=== PATIENT | female | born 1985 | race Hispanic/Latino ===

== ENCOUNTER 2019-02-05 18:21 | Inpatient (IN) | payer OTHER ==
[2019-02-05 18:47] LABS: Hematocrit 41.4 % (30.3-42.9); Hemoglobin 14.1 gm/dl (10.1-14.3); Mean Corpuscular HGB Conc 34 % (30-34); Mean Corpuscular Volume 95 fl (79-97); Platelet Count 345 K/mm3 (140-440); Red Blood Count 4.38 M/mm3 (3.65-5.03); Red Cell Distribution Width 13.5 % (13.2-15.2)
[2019-02-05 18:53] LABS: Bilirubin,Urine NEG (Negative); Blood,Urine NEG (Negative); Color,Urine Yellow (Yellow); Mucus,Urine FEW /HPF; Protein,Urine <15 mg/dL mg/dL (Negative); RBC,Urine < 1.0 /HPF (0.0-6.0); Urobilinogen,Urine < 2.0 mg/dL (<2.0)
[2019-02-05 19:10] LABS: Alanine Aminotransferase 13 units/L (7-56); Albumin 3.8 g/dL (3.9-5); BUN/Creatinine Ratio 9; Blood Urea Nitrogen 7 mg/dL (7-17); Calcium 8.7 mg/dL (8.4-10.2); Hemolysis Index 7
[2019-02-05 20:13] LABS: RBC Morphology Normal; Total Cells Counted 100
[2019-02-05] MEDS ORDERED: NACL 0.9% 1000 ML 1,000 ML IV ONE (20:42)
[2019-02-05] MEDS ORDERED: ZOFRAN IV ONE (20:42)
[2019-02-05] MEDS ORDERED: MORPHINE IV ONE (20:42)
[2019-02-05] MEDS ORDERED: PEPCID IV ONE (20:42)
--- NOTE | 2019-02-05 22:09 | Ultrasound Report ---
PROCEDURE: US ABDOMEN LIMITED TECHNIQUE: Real-time sonography was performed of the right upper quadrant with image documentation. HISTORY: RUQ PAIN COMPARISONS: None . FINDINGS: Examination of the gallbladder demonstrates no evidence for gallstones, distention, wall thickening, or pericholecystic fluid. No sonographic Tovar's sign is elicited. Common bile duct is normal in bhavesh meter measuring 1.3 mm. The liver is normal and homogeneous in echogenicity without focal abnormality or intrahepatic biliary dilatation. The pancreas is not visualized due to bowel gas. The right kidney is normal in size without calculi or hydronephrosis. The right measures 11.2 cm in craniocaudal length. The aorta is normal in caliber measuring up to 1.9 cm in diameter in its proximal portion. IMPRESSION: Normal right upper quadrant ultrasound. This document is electronically signed by Leta Ceja MD., February 05 2019 10:07:42 PM ET
--- NOTE | 2019-02-06 01:18 | Cat Scan Report ---
PROCEDURE: CT ABDOMEN PELVIS W CON TECHNIQUE: Computerized axial tomography of the abdomen and pelvis was performed after the IV inject ion of iodinated nonionic contrast. HISTORY: abdominal pain COMPARISONS: None . FINDINGS: Visualized lower thorax: No significant abnormality. Liver: Normal size and attenuation. Spleen: Normal size and attenuation. Gallbladder and biliary system: Normal. Pancreas: Normal. Adrenals: Normal. Kidneys: Normal. GI tract: The stomach is normal. The small bowel has normal caliber without obstruction. No ileus or enteritis. The cecum is normal. In the right lower quadrant there is a small area of fat stranding i dentified posterior to the cecum and this may be along the very distal tip of the appendix. The remai nder of the appendix has a normal caliber with no evidence of inflammatory change. This is small area of fat stranding could represent early inflammation in the tip of the appendix. The colon has a norm al appearance.. . Lymph nodes and mesentery: Normal. Vasculature: Normal.. Bladder: Normal. Reproductive organs: Normal. Peritoneum: No free fluid. Musculoskeletal structures: No significant abnormality. Other: None . IMPRESSION: There is a small area of inflammatory change and fat stranding posterior to the cecum in the right lower quadrant. This could represent early inflammation in the tip of the appendix. The re mainder of the appendix has a normal appearance on this study. Although definitive inflammation of th e appendix is not seen on this study, follow-up study may be required if clinical symptomatology is p ersistent. The cecum has a normal appearance. There is no evidence of intestinal or urinary tract obs truction. No ileus or enteritis.. . This document is electronically signed by Vani Neville DO., February 06 2019 01:17:12 AM ET
--- NOTE | 2019-02-06 02:22 | Emergency Department Report ---
ED Abdominal Pain HPI - General Chief Complaint: Abdominal Pain Stated Complaint: ABD PAIN Time Seen by Provider: 02/05/19 19:40 Source: patient Mode of arrival: Ambulatory Limitations: No Limitations - History of Present Illness Initial Comments: Patient is a A0 34-year-old -[place] female with no past medical history who presents to the ED with complaint of acute onset persistent severe right upper quadrant pain that radiates to the epigastric area as well as right lower quadrant pain with nausea and diarrhea for the last 24 hours. Patient states that the pain was initially mild and she even went to a club and drank a little alcohol and ate hot wings. Patient states that the pain got worse over 12 as ago and has been persistent with nausea and diarrhea. Patient states that the pain is mainly in the right upper quadrant and epigastric area but also radiates to the right lower quadrant. Patient denies dizziness, fever, chills, dysuria, vaginal bleeding, chest pain, shortness of breath, vomiting, low back pain or headache. MD Complaint: abdominal pain -: Sudden, hour(s) (24) Location: RUQ, RLQ, epigastric, suprapubic Radiation: RUQ, RLQ, epigastric, suprapubic Migration to: periumbilical, RLQ Severity: severe Severity scale (0 -10): 9 Quality: cramping, aching, sharp Consistency: constant Improves With: nothing Worsens With: nothing Associated Symptoms: denies other symptoms, nausea, diarrhea. denies: vomiting, chills, constipation, dysuria, hematemesis, hematochezia, melena, anorexia, syncope - Related Data LMP (females 10-50): last week Previous Rx's Medication Instructions Recorded Last Taken Type Albuterol Sulfate [Ventolin HFA] 2 puff IH Q4H PRN #1 hfa.aer.ad 09/24/13 Unknown Rx Azithromycin [Zithromax Z-JEEVAN] 250 mg PO DAILY #6 tablet 09/24/13 Unknown Rx Guaifenesin/Codeine Phosphate 10 ml PO Q6H PRN #8 oz 09/24/13 Unknown Rx [Cheratussin AC Syrup] Prednisone 20 mg PO QDAY #5 tablet 09/24/13 Unknown Rx Allergies Allergy/AdvReac Type Severity Reaction Status Date / Time No Known Allergies Allergy Verified 06/06/19 02:38 ED Review of Systems ROS: Stated complaint: ABD PAIN Other details as noted in HPI Comment: All other systems reviewed and negative Constitutional: no symptoms reported, see HPI. denies: chills, diaphoresis, fever, malaise Eyes: as per HPI. denies: eye pain, eye discharge, vision change ENT: as per HPI. denies: ear pain, throat pain, dental pain, hearing loss Respiratory: see HPI. denies: cough, orthopnea, shortness of breath, SOB with exertion, SOB at rest, wheezing Cardiovascular: as per HPI. denies: chest pain, palpitations Endocrine: no symptoms reported Gastrointestinal: as per HPI, abdominal pain, nausea, diarrhea Genitourinary: as per HPI. denies: urgency, dysuria, discharge Musculoskeletal: as per HPI. denies: back pain, joint swelling, arthralgia Skin: as per HPI. denies: rash, lesions Neurological: as per HPI. denies: headache, weakness, paresthesias Psychiatric: as per HPI. denies: anxiety, depression Hematological/Lymphatic: denies: easy bleeding, easy bruising ED Past Medical Hx - Past Medical History Previous Medical History?: No - Surgical History Past Surgical History?: No - Social History Smoking Status: Never Smoker Substance Use Type: None - Medications Home Medications: Home Medications Medication Instructions Recorded Confirmed Last Taken Type Albuterol Sulfate [Ventolin HFA] 2 puff IH Q4H PRN #1 hfa.aer.ad 09/24/13 Unknown Rx Azithromycin [Zithromax Z-JEEVAN] 250 mg PO DAILY #6 tablet 09/24/13 Unknown Rx Guaifenesin/Codeine Phosphate 10 ml PO Q6H PRN #8 oz 09/24/13 Unknown Rx [Cheratussin AC Syrup] Prednisone 20 mg PO QDAY #5 tablet 09/24/13 Unknown Rx ED Physical Exam - General Limitations: No Limitations General appearance: alert, in no apparent distress - Head Head exam: Present: atraumatic, normocephalic, normal inspection - Eye Eye exam: Present: normal appearance, PERRL, EOMI. Absent: scleral icterus, conjunctival injection Pupils: Present: normal accommodation - ENT ENT exam: Present: normal exam, normal orophraynx, mucous membranes moist, TM's normal bilaterally - Neck Neck exam: Present: normal inspection, full ROM. Absent: tenderness - Respiratory Respiratory exam: Present: normal lung sounds bilaterally. Absent: respiratory distress, wheezes, rales, rhonchi, chest wall tenderness, accessory muscle use, prolonged expiratory - Cardiovascular Cardiovascular Exam: Present: regular rate, normal rhythm. Absent: systolic murmur, diastolic murmur, rubs, gallop - GI/Abdominal GI/Abdominal exam: Present: soft, tenderness (right upper quadrant, epigastric and right lower quadrant tenderness, no guarding), normal bowel sounds. Absent: guarding, rebound, hyperactive bowel sounds, hypoactive bowel sounds, organomegaly - Rectal Rectal exam: Present: deferred - Extremities Exam Extremities exam: Present: normal inspection, full ROM, normal capillary refill - Back Exam Back exam: Present: normal inspection, full ROM. Absent: tenderness, CVA tenderness (L), muscle spasm, vertebral tenderness - Neurological Exam Neurological exam: Present: alert, oriented X3, CN II-XII intact, normal gait, reflexes normal - Psychiatric Psychiatric exam: Present: normal affect, normal mood - Skin Skin exam: Present: warm, dry, intact, normal color. Absent: rash ED Course Vital Signs 02/05/19 02/05/19 02/06/19 18:32 20:45 02:29 Temperature 98.3 F 98.2 F Pulse Rate 81 52 L Respiratory 16 16 20 Rate Blood Pressure 117/75 90/57 [Left] O2 Sat by Pulse 99 98 Oximetry - Reevaluation(s) Reevaluation #1: 02/06/19 02:28 Patient is alert and oriented 3 and is not in distress but in pain. Labs are drawn and patient is pain in the ED. Lab test results were reviewed and shows acute leukocytosis of 15,000. The rest of the lab test findings are unremarkable including urinalysis. The right upper quadrant gallbladder ultrasound shows normal gallbladder with a normal gallbladder wall thickness. Abdomen pelvis CT scan with contrast shows a small area of inflammatory change and fat stranding posterior to the cecum in the right lower quadrant. According to the radiologist report, this could represent either inflammation in the temporal appendix. The remainder of the appendix is normal in appearance and this study. The rest of the abdomen and pelvis CT scan report shows unremarkable findings. This report was discussed today he did an incision that is out of and asked that the neurosurgeon garment alteration examiner Dr. Peterson be paged and subsequently the hospitalist physician garment alteration examiner because paged to admit the patient and surgery will consult. ED Medical Decision Making - Lab Data Result diagrams: 02/05/19 18:37 02/05/19 18:37 - Radiology Data Radiology results: report reviewed, image reviewed The right upper quadrant gallbladder ultrasound shows normal gallbladder with a normal gallbladder wall thickness. Abdomen pelvis CT scan with contrast shows a small area of inflammatory change and fat stranding posterior to the cecum in the right lower quadrant. According to the radiologist report, this could represent either inflammation in the temporal appendix. The remainder of the appendix is normal in appearance and this study. - Medical Decision Making Patient is alert and oriented 3 and is not in distress but in pain. Labs are drawn and patient is pain in the ED. Lab test results were reviewed and shows acute leukocytosis of 15,000. The rest of the lab test findings are unremarkable including urinalysis. The right upper quadrant gallbladder ultrasound shows normal gallbladder with a normal gallbladder wall thickness. Abdomen pelvis CT scan with contrast shows a small area of inflammatory change and fat stranding posterior to the cecum in the right lower quadrant. According to the radiologist report, this could represent either inflammation in the temp oral appendix. The remainder of the appendix is normal in appearance and this study. The rest of the abdomen and pelvis CT scan report shows unremarkable findings. This report was discussed today he did an incision that is out of and asked that the neurosurgeon garment alteration examiner Dr. Peterson be paged and subsequently the hospitalist physician garment alteration examiner because paged to admit the patient and surgery will consult. I paged and discussed the patient's clinical findings plus imaging reports with the general surgeon garment alteration examiner Dr. Peterson were advised that the patient be kept nothing by mouth and that the hospitalist admit the patient and one of her colleagues shall evaluate the patient. I also paged and discu ssed the patient's findings with the hospitalist physician garment alteration examiner Dr. Smart will admit the patient to the hospital. - Differential Diagnosis abdominal pain, Acute appendicitis, Cholelithiasis, gastritis Critical care attestation.: If time is entered above; I have spent that time in minutes in the direct care of this critically ill patient, excluding procedure time. ED Disposition Clinical Impression: Abdominal pain Qualifiers: Abdominal location: right lower quadrant Qualified Code(s): R10.31 - Right lower quadrant pain Acute appendicitis Qualifiers: Acute appendicitis type: unspecified acute appendicitis type Qualified Code(s): K35.80 - Unspecified acute appendicitis Disposition: DC-09 OP ADMIT IP TO THIS HOSP Is pt being admited?: Yes Does the pt Need Aspirin: No Condition: Stable Instructions: Abdominal Pain (ED) Referrals: NIXON DE LA CRUZ MD [Primary Care Provider] - 3-5 Days Time of Disposition: 02:35
[2019-02-06] MEDS ORDERED: ZOSYN/NS 3.375GM/50ML 3.375 GM/50 ML BAG IV ONE (02:36)
[2019-02-06] MEDS ORDERED: ZOFRAN IV ONE (02:37)
[2019-02-06] MEDS ORDERED: TYLENOL PO PRN (04:01)
[2019-02-06] MEDS ORDERED: SODIUM CHLORIDE FLUSH SYRINGE 10 ML IV PRN (04:01)
[2019-02-06] MEDS ORDERED: ZOFRAN IV PRN (04:01)
--- NOTE | 2019-02-06 04:06 | History and Physical Report ---
History of Present Illness Date of examination: 02/06/19 History of present illness: 34year old woman with no medical problem constantly emergency room complaining of abdominal pain located in the right upper quadrant that started this morning. She describes the pain as sharp, constant, radiating to the epigastric area, intensity 7/10, relieved with pain medication given in the emergency room. Complains of nausea, one episodes of diarrhea, no fever no chills Review of systems Constitutional: no weight loss, chills, fever Ears, eyes, nose, mouth and throat: no nasal congestion, no nasal discharge, no sinus pressure, no vision change, no red eye. Neck: No neck pain or rigidity. Cardiovascular: no palpitations, chest pain Respiratory: no cough, shortness of breath Gastrointestinal: no hematochezia, abdominal pain Genitourinary : no frequency , no hematuria Musculoskeletal: no joint swelling or muscle ache Integumentary: no rash, no pruritis Neurological: no parathesias, no focal weakness Endocrine: no cold or heat intolerance, no polyuria or polydipsia Hematologic/Lymphatic: no easy bruising, no easy bleeding, no gland swelling Allergic/Immunologic: no urticaria, no angioedema. PAST MEDICAL HISTORY:None PAST SURGICAL HISTORY: None SOCIAL HISTORY: Denies alcohol, drugs, tobacco FAMILY HISTORY: Hypertension Medications and Allergies Allergies Allergy/AdvReac Type Severity Reaction Status Date / Time No Known Allergies Allergy Verified 02/06/19 02:38 Home Medications Medication Instructions Recorded Confirmed Last Taken Type Albuterol Sulfate [Ventolin HFA] 2 puff IH Q4H PRN #1 hfa.aer.ad 09/24/13 Unknown Rx Azithromycin [Zithromax Z-JEEVAN] 250 mg PO DAILY #6 tablet 09/24/13 Unknown Rx Guaifenesin/Codeine Phosphate 10 ml PO Q6H PRN #8 oz 09/24/13 Unknown Rx [Cheratussin AC Syrup] Prednisone 20 mg PO QDAY #5 tablet 09/24/13 Unknown Rx Active Meds: Active Medications Acetaminophen (Tylenol) 650 mg PO Q4H PRN PRN Reason: Pain MILD(1-3)/Fever >100.5/HERNANDEZ Enoxaparin Sodium (Lovenox) 40 mg SUB-Q QDAY@1000 CANDIDA Sodium Chloride (Nacl 0.9% 1000 Ml) 1,000 mls @ 125 mls/hr IV ONCE ONE Stop: 02/06/19 11:17 Sodium Chloride (Nacl 0.9% 1000 Ml) 1,000 mls @ 125 mls/hr IV DIRECT CANDIDA Piperacillin Sod/Tazobactam Sod (Zosyn/Ns 4.5gm/100ml) 4.5 gm in 100 mls @ 200 mls/hr IV Q8HR CANDIDA; Protocol Morphine Sulfate (Morphine) 2 mg IV Q4H PRN PRN Reason: Pain, Moderate (4-6) Ondansetron HCl (Zofran) 4 mg IV Q8H PRN PRN Reason: Nausea And Vomiting Sodium Chloride (Sodium Chloride Flush Syringe 10 Ml) 10 ml IV BID CANDIDA Sodium Chloride (Sodium Chloride Flush Syringe 10 Ml) 10 ml IV PRN PRN PRN Reason: LINE FLUSH Exam - Physical Exam Narrative exam: General Apperance: The patient lying in bed, breathing comfortable HEENT: Normocephalic, atraumatic. Pupils equally round and reactive to light, EOMI, no sclericterus or JVD or thyromegaly or nodule. , no carotid bruit, mucous membranes moist, no exudate or erythema Heart: S1-S2, regular is rhythm Lungs: Clear to auscultation bilaterally, breathing comfortable Abdomen: Positive bowel sounds, soft, tender in ruq, nondistended, no organomegaly Extremities: No edema cyanosis clubbing Skin: no rash, nodule, warm and dry Neuro: cranial nerves 2-12 intact, speech is fluent, motor/sensory intact - Constitutional Vitals: Temp Pulse Resp BP Pulse Ox 98.2 F 52 L 20 90/57 98 02/06/19 02:29 02/06/19 02:29 02/06/19 02:29 02/06/19 02:29 02/06/19 02:29 Results - Labs CBC & Chem 7: 02/05/19 18:37 02/05/19 18:37 Labs: Abnormal lab results 02/05/19 02/05/19 Range/Units 18:37 18:37 WBC 15.0 H (4.5-11.0) K/mm3 Seg Neutrophils # Man 9.5 H (1.8-7.7) K/mm3 Basophils # (Manual) 0.2 H (0.0-0.1) K/mm3 Albumin 3.8 L (3.9-5) g/dL - Imaging and Cardiology EKG: image reviewed CT scan - abdomen: report reviewed CT scan - pelvis: report reviewed US - abdomen: report reviewed Assessment and Plan Assessment Abdominal pain, possible appendicitis Plan Admit to medicine Nothing by mouth, IV fluid, IV Zosyn Surgery was consulted to see the patient DVT prophylaxis
[2019-02-06] MEDS: NACL 0.9% 1000 ML 1,000 ML IV ONE ×2 (04:48→04:49)
[2019-02-06] MEDS ORDERED: NACL 0.9% 1000 ML 1,000 ML IV SCH (05:00)
[2019-02-06 05:26] LABS: Basophils # (Auto) 0.1 K/mm3 (0.0-0.1); Basophils % (Auto) 1.1 % (0.0-1.8); Eosinophils # (Auto) 0.1 K/mm3 (0.0-0.4); Eosinophils % (Auto) 0.9 % (0.0-4.3); Hematocrit 39.2 % (30.3-42.9); Hemoglobin 13.6 gm/dl (10.1-14.3); Lymphocytes % (Auto) 32.6 % (13.4-35.0); Mean Corpuscular HGB Conc 35 % (30-34); Mean Corpuscular Volume 95 fl (79-97); Monocytes # (Auto) 1.1 K/mm3 (0.0-0.8); Monocytes % (Auto) 8.8 % (0.0-7.3); Platelet Count 314 K/mm3 (140-440); Red Blood Count 4.14 M/mm3 (3.65-5.03); Red Cell Distribution Width 13.6 % (13.2-15.2)
[2019-02-06 05:43] LABS: BUN/Creatinine Ratio 9; Blood Urea Nitrogen 7 mg/dL (7-17); Calcium 8.6 mg/dL (8.4-10.2); Hemolysis Index 9
[2019-02-06] MEDS: MORPHINE IV PRN ×2 (09:15→22:48)
[2019-02-06] MEDS: SODIUM CHLORIDE FLUSH SYRINGE 10 ML IV SCH (09:15)
--- NOTE | 2019-02-06 09:26 | Consultation ---
History of Present Illness Consult date: 02/06/19 Reason for consult: abdominal pain Requesting physician: TIFFANIE NAGY Chief complaint: upper abdominal pain - History of present illness History of present illness: 34yo F with a remote history of stomach ulcer presents with acute onset of upper abdominal pain. Denies any complaints prior to yesterday morning. Denies any trauma. Has had no recent surgical procedures. Denies any fevers, chills, nausea, vomiting, heartburn, reflux. Has not been taking any NSAIDs. She reports that this pain that she has in her right upper quadrant and epigastric area is different than the stomach ulcer pain she had in the distant past. She didn't appreciate the right lower quadrant pain until evaluation was done. General surgery was asked see the patient for possible acute appendicitis. Patient reports that her epigastric pain is less than yesterday. Past History Past Medical History: other (remote history of "stomach ulcer") Past Surgical History: No surgical history Social history: smoking (1ppd). denies: alcohol abuse, prescription drug abuse, IV drug use Family history: no significant family history Medications and Allergies Allergies Allergy/AdvReac Type Severity Reaction Status Date / Time No Known Allergies Allergy Verified 02/06/19 02:38 Home Medications Medication Instructions Recorded Confirmed Last Taken Type Albuterol Sulfate [Ventolin HFA] 2 puff IH Q4H PRN #1 hfa.aer.ad 09/24/13 Unknown Rx Azithromycin [Zithromax Z-JEEVAN] 250 mg PO DAILY #6 tablet 09/24/13 Unknown Rx Guaifenesin/Codeine Phosphate 10 ml PO Q6H PRN #8 oz 09/24/13 Unknown Rx [Cheratussin AC Syrup] Prednisone 20 mg PO QDAY #5 tablet 09/24/13 Unknown Rx Active Meds: Active Medications Acetaminophen (Tylenol) 650 mg PO Q4H PRN PRN Reason: Pain MILD(1-3)/Fever >100.5/HERNANDEZ Sodium Chloride (Nacl 0.9% 1000 Ml) 1,000 mls @ 125 mls/hr IV ONCE ONE Stop: 02/06/19 11:17 Last Admin: 02/06/19 04:49 Dose: Not Given Documented by: Sodium Chloride (Nacl 0.9% 1000 Ml) 1,000 mls @ 125 mls/hr IV DIRECT CANDIDA Last Admin: 02/06/19 04:50 Dose: 125 mls/hr Documented by: Piperacillin Sod/Tazobactam Sod (Zosyn/Ns 4.5gm/100ml) 4.5 gm in 100 mls @ 200 mls/hr IV Q8H CANDIDA; Protocol Last Admin: 02/06/19 09:15 Dose: 200 mls/hr Documented by: Sodium Chloride (Nacl 0.9% 1000 Ml) 1,000 mls @ 999 mls/hr IV BOLUS ONE Stop: 02/06/19 10:30 Morphine Sulfate (Morphine) 2 mg IV Q4H PRN PRN Reason: Pain, Moderate (4-6) Last Admin: 02/06/19 09:15 Dose: 2 mg Documented by: Ondansetron HCl (Zofran) 4 mg IV Q8H PRN PRN Reason: Nausea And Vomiting Sodium Chloride (Sodium Chloride Flush Syringe 10 Ml) 10 ml IV BID CANDIDA Last Admin: 02/06/19 09:15 Dose: 10 ml Documented by: Sodium Chloride (Sodium Chloride Flush Syringe 10 Ml) 10 ml IV PRN PRN PRN Reason: LINE FLUSH Review of Systems - Constitutional no fever, no chills, no chronic pain - Cardiovascular no chest pain - Respiratory no cough, no shortness of breath, no dyspnea on exertion - Gastrointestinal abdominal pain, constipation, change in bowel habits, belching, dyspepsia/bloating, no nausea, no vomiting, no diarrhea, no hematemesis, no coffee ground emesis, no BRBPR, no melena, no hematochezia, no heartburn, no indigestion - Genitourinary Genitourinary: no dysuria - Muskuloskeletal no low back pain Exam Vital Signs Temp Pulse Resp BP Pulse Ox 98.3 F 81 16 117/75 99 02/05/19 18:32 02/05/19 18:32 02/05/19 18:32 02/05/19 18:32 02/05/19 18:32 - General physical appearance Positive: no distress, no pain, other (appears ok) - Eyes Positive: normal occular movement. Negative: icteric - Respiratory Positive: normal expansion, normal respiratory effort, clear to auscultation - Cardiovascular Rhythm: regular - Abdomen Abdomen: Present: soft, tender (in epigastric/RUQ/RLQ areas. Upper abdomen is more tender. Abdominal wall contraction decreased epigastric tenderness on palpation). Absent: distended, masses, guarding, rigid, wound, surgical scars - Integumentary no rash, no growths, no abnormal pigmentation - Neurologic Neurologic: alert and oriented to time, place and person, motor strength and sensation are grossly intact - Psychiatric Psychiatric: appropriate mood/affect, intact judgment & insight, cooperative Results - Labs 02/06/19 04:57 02/06/19 04:57 Abnormal lab results 02/05/19 02/05/19 02/06/19 Range/Units 18:37 18:37 04:57 WBC 15.0 H 12.3 H (4.5-11.0) K/mm3 MCH 33 H (28-32) pg MCHC 35 H (30-34) % Garland % (Auto) 8.8 H (0.0-7.3) % Garland # 1.1 H (0.0-0.8) K/mm3 Seg Neutrophils # Man 9.5 H (1.8-7.7) K/mm3 Basophils # (Manual) 0.2 H (0.0-0.1) K/mm3 Carbon Dioxide (22-30) mmol/L Albumin 3.8 L (3.9-5) g/dL 02/06/19 Range/Units 04:57 WBC (4.5-11.0) K/mm3 MCH (28-32) pg MCHC (30-34) % Garland % (Auto) (0.0-7.3) % Garland # (0.0-0.8) K/mm3 Seg Neutrophils # Man (1.8-7.7) K/mm3 Basophils # (Manual) (0.0-0.1) K/mm3 Carbon Dioxide 21 L (22-30) mmol/L Albumin (3.9-5) g/dL Diabetes panel 02/05/19 02/06/19 Range/Units 18:37 04:57 Sodium 139 139 (137-145) mmol/L Potassium 4.1 3.8 (3.6-5.0) mmol/L Chloride 104.1 106.7 (98-107) mmol/L Carbon Dioxide 23 21 L (22-30) mmol/L BUN 7 7 (7-17) mg/dL Creatinine 0.8 0.8 (0.7-1.2) mg/dL Glucose 92 92 (65-100) mg/dL Calcium 8.7 8.6 (8.4-10.2) mg/dL AST 13 (5-40) units/L ALT 13 (7-56) units/L Alkaline Phosphatase 65 (35-129) units/L Total Protein 7.2 (6.3-8.2) g/dL Albumin 3.8 L (3.9-5) g/dL Calcium panel 02/05/19 02/06/19 Range/Units 18:37 04:57 Calcium 8.7 8.6 (8.4-10.2) mg/dL Albumin 3.8 L (3.9-5) g/dL Pituitary panel 02/05/19 02/06/19 Range/Units 18:37 04:57 Sodium 139 139 (137-145) mmol/L Potassium 4.1 3.8 (3.6-5.0) mmol/L Chloride 104.1 106.7 (98-107) mmol/L Carbon Dioxide 23 21 L (22-30) mmol/L BUN 7 7 (7-17) mg/dL Creatinine 0.8 0.8 (0.7-1.2) mg/dL Glucose 92 92 (65-100) mg/dL Calcium 8.7 8.6 (8.4-10.2) mg/dL Adrenal panel 02/05/19 02/06/19 Range/Units 18:37 04:57 Sodium 139 139 (137-145) mmol/L Potassium 4.1 3.8 (3.6-5.0) mmol/L Chloride 104.1 106.7 (98-107) mmol/L Carbon Dioxide 23 21 L (22-30) mmol/L BUN 7 7 (7-17) mg/dL Creatinine 0.8 0.8 (0.7-1.2) mg/dL Glucose 92 92 (65-100) mg/dL Calcium 8.7 8.6 (8.4-10.2) mg/dL Total Bilirubin 0.40 (0.1-1.2) mg/dL AST 13 (5-40) units/L ALT 13 (7-56) units/L Alkaline Phosphatase 65 (35-129) units/L Total Protein 7.2 (6.3-8.2) g/dL Albumin 3.8 L (3.9-5) g/dL - Imaging CT scan - abdomen: report reviewed, image reviewed CT scan - pelvis: report reviewed, image reviewed Assessment and Plan - Patient Problems (1) Acute appendicitis Current Visit: Yes Status: Acute Qualifiers: Acute appendicitis type: unspecified acute appendicitis type Qualified Code(s): K35.80 - Unspecified acute appendicitis Plan to address problem: Pt stable. History is a bit unusual. This would be more typical of a duodenal perforation with fluid settling in the right lower quadrant. I examined the CT scan very carefully at the gastroduodenal junction and I did not see any suggestion of any free air, inflammatory change, thickening, etc. The only abnormality noted was a slightly thickened appendiceal tip with some mild inflammatory changes. I explained this in detail to the patient. It is poss ible that her upper abdominal symptoms are related to pressure from constipation. This may be secondary to the appendicitis. My recommendation would be to proceed for diagnostic laparoscopy, laparoscopic appendectomy, evaluation of the epigastric area. Procedure, risks, benefits were discussed. All questions were answered. Patient understood and consented. We will proceed to the OR today. Time=30min
[2019-02-06] MEDS ORDERED: NACL 0.9% 1000 ML 1,000 ML IV ONE (09:30)
[2019-02-06] MEDS ORDERED: LOVENOX SUB-Q SCH ×2 (10:00)
[2019-02-06] MEDS ORDERED: ZOSYN/NS 4.5GM/100ML 4.5 GM/100 ML VIAL IV SCH (10:00)
--- NOTE | 2019-02-06 12:15 | Anesthesia Consultation ---
Anesthesia Consult and Med Hx Date of service: 02/06/19 - Airway Anesthetic Teeth Evaluation: Good ROM Head & Neck: Adequate Mental/Hyoid Distance: Adequate Mallampati Class: Class II Intubation Access Assessment: Good - Pulmonary Exam CTA: Yes - Cardiac Exam Cardiac Exam: RRR - Pre-Operative Health Status ASA Pre-Surgery Classification: ASA1 - Pulmonary Hx Asthma: No COPD: No Hx Pneumonia: No - Central Nervous System Hx Psychiatric Problems: No - Endocrine Hx End Stage Renal Disease: No
--- NOTE | 2019-02-06 12:15 | Anesthesia Day of Surgery ---
Anesthesia Day of Surgery - Day of Surgery Patient Examined: Yes Patient H&P Reviewed: Yes Patient is NPO: Yes
[2019-02-06] MEDS: LACTATED RINGERS 1,000 ML IV SCH ×2 (12:42→15:53)
[2019-02-06] MEDS ORDERED: VERSED IV NR (13:00)
[2019-02-06] MEDS ORDERED: XYLOCAINE MPF 2% ONE (13:06)
[2019-02-06] MEDS ORDERED: QUELICIN ONE (13:06)
[2019-02-06] MEDS ORDERED: DILAUDID ONE ×2 (13:06→14:46)
[2019-02-06] MEDS ORDERED: DIPRIVAN 10 MG/ML IV ONE (13:06)
[2019-02-06] MEDS ORDERED: ZEMURON IV ONE (13:09)
[2019-02-06] MEDS ORDERED: XYLOCAINE 1% 20 mL INFILTRATI ONE (14:16)
[2019-02-06] MEDS ORDERED: MARCAINE 0.25% INFILTRATI ONE (14:16)
[2019-02-06] MEDS ORDERED: NACL 0.9% IR ONE (14:17)
[2019-02-06] MEDS ORDERED: ZOFRAN ONE (14:24)
[2019-02-06] MEDS ORDERED: BLOXIVERZ ONE (14:24)
[2019-02-06] MEDS ORDERED: TORADOL ONE (14:24)
[2019-02-06] MEDS ORDERED: ROBINUL ONE ×2 (14:24→14:27)
--- NOTE | 2019-02-06 14:36 | Post Operative Note ---
Date of procedure: 02/06/19 (dictation: [id number]) Pre-op diagnosis: acute appendicitis Post-op diagnosis: same Findings: mildly inflamed appendix with necrotic tip Procedure: lap appy IVF 600cc min EBL Anesthesia: GETA Surgeon: KYLE BROCK Estimated blood loss: minimal Pathology: list (appendix) Specimen disposition: to lab Condition: stable Disposition: PACU
[2019-02-06] MEDS ORDERED: DILAUDID IV PRN (14:57)
--- NOTE | 2019-02-06 15:44 | Post Anesthesia Evaluation ---
- Post Anesthesia Evaluation Patient Participated: Yes Airway Patent: Yes Stable Respiratory Function: Yes Nausea/Vomiting: No Temp > 96.8F: Yes Pain Manageable: Yes Adequeate Hydration: Yes Anesthesia Complications: No Block Receding Appropriately: Not Applicable Patient on Ventilator: No
--- NOTE | 2019-02-06 16:39 | Event Note ---
Date: 02/06/19 Patient s/p appendectomy for acute appendicitis. I have seen and examined her.
[2019-02-06] MEDS ORDERED: NACL 0.9% 500 ML 500 ML IV ONE (17:01)
[2019-02-06] MEDS: TORADOL IV SCH (18:03)
[2019-02-06] MEDS ORDERED: BENADRYL IV PRN (18:20)
--- NOTE | 2019-02-06 18:36 | Operative Report ---
PREOPERATIVE DIAGNOSIS: Acute appendicitis. POSTOPERATIVE DIAGNOSIS: Acute appendicitis. PROCEDURE: Laparoscopic appendectomy. ATTENDING PHYSICIAN: Fay Grajeda MD ANESTHESIA: General. ESTIMATED BLOOD LOSS: Minimal. FLUIDS: 600 mL. FINDINGS: No evidence of any abnormality in the upper abdomen/epigastric area where the patient reports she is having discomfort. The patient did have a mildly inflamed appendix that had an ischemic distal tip. No evidence of any perforation. SPECIMENS: Appendix. DRAINS: None. COMPLICATIONS: None. DISPOSITION: Stable, transferred to Recovery Room. INDICATIONS: This is a 34-year-old female who presented with a day and half history of acute onset of upper abdominal pain. CT scan showed no abnormalities in the upper abdomen, only a mildly inflamed appendix in the right lower quadrant. The patient's assessed to be in need for diagnostic laparoscopy and appendectomy. Procedure, risks and benefits were explained to the patient. Risks included but were not limited to infection, bleeding, pain, injury to surrounding structures, possible need for further procedures in the future. The patient understood and consented. DESCRIPTION OF PROCEDURE: The patient was brought to the operating room and placed on the table in supine position. After adequate general anesthesia was established, the patient was prepped and draped in the usual sterile fashion. Antibiotics had already been given on the floor. SCDs were in place. Time-out was called. I began by placing a Veress needle in the left upper quadrant. I was able to insufflate the abdomen on my first attempt. A 5 mm port was placed at the umbilicus using the Optiview technique. I entered the peritoneal cavity safely. There was no injury to the underlying structures where the Veress needle was inserted. Needle was removed. I placed a 5 mm port in the right upper quadrant, so as I could evaluate the upper abdomen properly. This was done under direct vision using atraumatic grasper. I examined the stomach, the duodenum, liver and gallbladder very carefully. I saw absolutely no suggestion of an abnormality. Everything appeared completely normal. The colon, perhaps was slightly dilated, but had no inflammatory changes, perhaps her pain was coming from constipation and/or dilatation of the bowel. I turned my attention to right lower quadrant. We placed a 5 mm port in the suprapubic area and then a 12 mm port in the left lower quadrant. The appendix was retrocecal. Using the ileocolic fat pad, we retracted the cecum medially. I was able to get the appendix mobilized. The distal tip was ischemic and adhered to the abdominal sidewall. With blunt dissection, I was able to separate that. We divided the mesoappendix with the LigaSure device. Using a 45 mm laparoscopic stapler blue load, I divided the base of the appendix. We had a clean staple line along the cecum. There was no evidence of any bleeding or intestinal leakage. The specimen was placed in the EndoCatch bag and left on the side. We examined the staple line. We had absolutely hemostatic staple line with no leaking. There were no other abnormalities. We removed the EndoCatch bag from the left lower quadrant port site. I checked that site as I placed the port tangentially. The actual opening was quite small. I did not think any sutures would be needed, therefore, we left it as is. All the ports were removed. We desufflated the abdomen. Additional local was injected into the port sites. Skin was closed with 4-0 Monocryl subcuticular stitches. Skin was cleaned and dried. Dermabond was placed. The patient tolerated the procedure well. There were no complications. All counts were correct at the end of the case. I spoke with the family at the end of the case and gave them an update. They were very appreciative. JOB# [id number] ZEKE/MAYCO LEAL
[2019-02-07] MEDS: TORADOL IV SCH ×2 (00:02→11:36)
[2019-02-07] MEDS: SODIUM CHLORIDE FLUSH SYRINGE 10 ML IV SCH ×3 (00:03→10:37)
[2019-02-07] MEDS: LACTATED RINGERS 1,000 ML IV SCH ×2 (00:05→15:20)
--- NOTE | 2019-02-07 08:17 | Progress Note ---
Assessment and Plan - Patient Problems (1) Acute appendicitis Current Visit: Yes Status: Acute Qualifiers: Acute appendicitis type: unspecified acute appendicitis type Qualified Code(s): K35.80 - Unspecified acute appendicitis Plan to address problem: pt stable. s/p lap appy - 02/06/19 - POD#1 for mild acute appendicitis. Pt doing well. May go home if tolerating diet and pain controlled. Rec: 1) possible d/c home today 2) f/u in office in 2 weeks. call for appt 3) diet as tolerated 4) may shower tomorrow. pat dry wounds Please call with questions. Subjective Date of service: 02/07/19 Patient Reports: Positive: no new complaints, feels better, pain is less, tolerating liquids well. Negative: nausea, vomiting Objective Vital Signs - 12hr 02/06/19 02/07/19 23:41 04:38 Temperature 98.2 F 98.1 F Pulse Rate 49 L 49 L Respiratory 20 18 Rate Blood Pressure 104/66 96/43 O2 Sat by Pulse 96 95 Oximetry - General physical appearance no distress, no pain - Respiratory normal expansion, normal respiratory effort - Abdomen soft, not distended, not guarding, not rigid, surgical scars (C/D/I) - Psychiatric oriented to time, oriented to person, oriented to place, speech is normal, memory intact - Labs 02/06/19 04:57 02/06/19 04:57
[2019-02-07] MEDS: NORCO 5/325 PO PRN ×2 (08:32→15:17)
[2019-02-07] MEDS ORDERED: NACL 0.9% 1000 ML 1,000 ML IV ONE (09:45)
[2019-02-07] MEDS ORDERED: CITRATE OF MAGNESIA PO ONE (16:02)
--- NOTE | 2019-02-07 16:19 | Discharge Summary ---
Providers - Providers Date of Admission: 02/06/19 03:48 Date of discharge: 02/07/19 Attending physician: MIRLANDE BLANC 02/06/19 02:57 Consult to Physician [CONS] Stat Comment: [employer]ER/PA spoke with Dr. Alvarez @ [phone] Consulting Provider: MORIAH ALVAREZ Physician Instructions: Reason For Exam: Acute appendicitis Primary care physician: [facility] MD IVAN Hospitalization Condition: Fair Hospital course: Patient is 34 yo presented with abdominal pain. She was seen and evaluated in Emergency Department. CT Abdomen revealed acute appendicitis. She was started on iv antibiotic and admitted. Surgeon was consulted and he was evaluated by Dr. Grajeda and he did laparoscopic appendectomy on 02/07/19. Post-op she did well, pain was controllable, diet tolerated so was discharged home on 02/07/19. Patient had bradycardia but was asymptomatic. Total time spent, 32 mins Disposition: DC-01 TO HOME OR SELFCARE - Discharge Diagnoses (1) S/P appendectomy Status: Acute (2) Acute appendicitis Status: Acute Qualifiers: Acute appendicitis type: unspecified acute appendicitis type Qualified Code(s): K35.80 - Unspecified acute appendicitis (3) Leukocytosis Status: Acute (4) Bradycardia Status: Acute Core Measure Documentation - Palliative Care Palliative Care/ Comfort Measures: Not Applicable - Core Measures Any of the following diagnoses?: none Exam - Constitutional Vitals: Temp Pulse Resp BP Pulse Ox 98.5 F 47 L 18 110/58 98 02/07/19 12:08 02/07/19 12:08 02/07/19 12:08 02/07/19 12:08 02/07/19 12:08 Plan Diet: low fat, low cholesterol, low salt Additional Instructions: 1.Follow up with Dr. Grajeda in 1-2 weeks. 2.Follow up with [facility]CP or [facility] 3-5 days Follow up with: NIXON DE LA CRUZ MD [Primary Care Provider] - 3-5 Days Prescriptions: HYDROcodone/APAP 5-325 [[place] 5-325 mg TAB] 1 each PO Q6H PRN #15 tablet PRN Reason: Pain, Moderate (4-6)
[2019-02-07 16:49] VITALS: BP 113/73
== END 2019-02-07 17:36 | disposition home or self-care (01) | DRG 343 ==
LOC: ED 18:21 → 3B-SURG 02-06 03:48
PROVIDERS: ADMIT Internal Medicine; ATTEND Internal Medicine
PROC: 0DTJ4ZZ Resection of Appendix, Percutaneous Endoscopic Approach (ICD-10-PCS; principal; 2019-02-06)
DX: K35.80 Unspecified acute appendicitis (principal)
CPT/HCPCS: 36415; 74177; 76705; 80048; 80053; 81001; 81025; 84439; 84443; 85007; 85025; 88304; 93005; 93010; 96374; 96375; 99285; G0378; J0330; J1170; J1200; J1885; J2250; J2270; J2405; J2543; J2704; J2710; J7030; J7040; J7120; Q9967